=== PATIENT | female | born 1995 | race Caucasian/White ===

== ENCOUNTER 2020-07-19 19:30 | Emergency (ER) | payer MEDICAID ==
[2020-07-19] MEDS ORDERED: Sodium Chloride 0.9% 1,000 ML IV ONE (19:48)
[2020-07-19] MEDS ORDERED: Sodium Chloride 0.9% 2.5 ML Syringe FLUSH PRN (19:48)
[2020-07-19] MEDS ORDERED: Sodium Chloride 0.9% 10 ML Syringe FLUSH PRN (19:48)
[2020-07-19 20:31] LABS: BLOOD UREA NITROGEN,BUN 11 mg/dL (7.0-18.0); CARBON DIOXIDE,CO2 24.8 mmol/L (21.0-32.0); CHLORIDE,CL 102 mmol/L (98-107); GLUCOSE RANDOM 77 mg/dL (74-106); POTASSIUM,K 3.1 mmol/L (3.5-5.1); SODIUM,NA 139 mmol/L (136-145)
--- NOTE | 2020-07-19 20:50 | US ---
INDICATION: Vaginal bleeding in the 1st trimester. 11 weeks 4 days gestation by LMP TECHNIQUE: Ultrasound OB pelvis transvaginal. Real-time li-scale imaging of the pelvis was performed. COMPARISON: None FINDINGS: Sonographic imaging demonstrates a single living intrauterine gestation. The embryo demonstrates a regular cardiac rate measuring 158 beats per minute. The embryo`s crown rump length measurement of 3.2 cm corresponds to a gestational age of 10 weeks 0 days with a sonographic due date of February 14, 2021. There is a normal appearing yolk sac. There are no gross abnormalities noted within the embryo at this early state of development. The placenta has not yet developed. The gestational sac has a normal appearance and there is no evidence of a perigestational hemorrhage. The amount of fluid within the sac appears appropriate for gestational age. The ovaries are of normal size. There are no suspicious fluid collections noted in the cul-de-sac. IMPRESSION: Single viable intrauterine . No abnormalities seen. Gestational age calculated at 10 weeks 0 days with a due date of February 14, 2021. Dictated by Celine Gutiérrez MD @ Jul 19 2020 8:46PM Signed by Dr. Celine Gutiérrez @ Jul 19 2020 8:49PM
--- NOTE | 2020-07-19 21:15 | EDM.PDOC ---
ED HPI GENERAL MEDICAL PROBLEM - General Chief Complaint: MANAGER BUSINESS INTELLIGENCE Problem Stated Complaint: possible miscarriage Time Seen by Provider: 07/19/20 19:43 - History of Present Illness INITIAL COMMENTS - FREE TEXT/NARRATIVE: HISTORY AND PHYSICAL: History of present illness: This is a 25-year-old female who is 3 para 2 who presents ER today secondary to vaginal bleeding. Patient reports she is exactly 10 weeks . Patient reports that she had a routine ultrasound today to confirm dates and was told that she is 10 weeks 0 days . Patient reports that she had no complaints at the time of the ultrasound. Patient reports she went home this evening while watching TV she noticed wetness in her underwear. Patient reports went to the bathroom and noticed that it was blood. Patient reports mild abdominal cramping. Patient has any recent fevers, shakes, chills, nausea, vomiting, diarrhea, dysuria, frequency, urgency, chest pain, shortness of breath, dizziness, presyncope. Patient reports that bleeding occurred approximately half an hour prior to arrival to the ED. Patient reports that she is blood less than 1 pad. Review of systems: As per history of present illness and below otherwise all systems reviewed and negative. Past medical history: As per history of present illness and as reviewed below otherwise noncontributory. Surgical history: As per history of present illness and as reviewed below otherwise noncontributory. Social history: No reported history of drug or alcohol abuse. Family history: As per history of present illness and as reviewed below otherwise noncontributory. Physical exam: Constitutional: Patient is oriented to person, place, and time. Appears well- developed and well-nourished. No distress. HEENT: Moist mucous membranes Head: Normocephalic and atraumatic Eyes: Right eye exhibits no discharge. Left eye exhibits no discharge. No scleral icterus Neck: Normal range of motion. No tracheal deviation present. Cardiovascular: Normal rate and regular rhythm. Pulmonary: Effort normal, no respiratory distress. Abdominal: No distention Musculoskeletal: Normal range of motion Neurologic: Alert and oriented to person, place and time. Skin: [place], warm and dry. Psychiatric: Normal mood and affect. Behavior is normal. Judgment and thought content normal. Nursing note and vital signs have been reviewed Patient's ER physical exam is significant for Abd: Soft, nondistended, no rebound/guarding, no psoas or obturator signs, no tenderness at Mcberney's point, no Leiva's sign. Pt does not present with an exam that would be consistent with an acute surgical abdomen at this time, nontender to palpation. Pelvic exam: Os closed small amount of blood in vaginal vault. Diagnostics: CBC, CMP within normal limits. Patient is AB-: Per up-to-date:Some groups do not recommend prophylactic anti-D immune globulin after a complete spontaneous miscarriage before 12 weeks of gestation if the uterus is not instrumented, but do recommend prophylaxis when curettage is performed because the procedure increases the chances of fetomaternal bleeding.Spontaneous and induced before 20 weeks of gestation have been associated with a 1.5 to 2.0 percent and a 4 to 5 percent risk of alloimmunization, respectively [48]. Assessment and plan: This is a 25-year-old 3 para 2 female who presents ER today secondary to 10-week with vaginal bleeding. Patient is clinically hemodynamically stable. Patient's pelvic exam reveals a closed cervical os. Patient's ultrasound reveals a normal 10-week IUP with good heart activity. I have discussed with the patient the plan for RhoGam and have recommended that she follow-up with her OB doctor for final determination. At this time I feel that the risks and benefits would favor holding off giving RhoGam at this time. Patient is in agreement. Patient prefers to wait and speak to her OB doctor in the next 1 to 2 days for reevaluation and final decision making regarding treatment. Patient currently feels very comfortable with current plan. Patient has been advised to return to the ER if she has increased bleeding greater than 2-3 pads per hour for greater than 2 to 3 hours. Patient will return to the ER if she has any symptoms of dizziness, shortness of breath, presyncope. Patient return the ER if she has any new or concerning symptoms. Reassessment at the time of disposition demonstrates that the patient is in no acute distress. The patient has remained stable throughout the entire ED visit and is without objective evidence for acute process requiring urgent intervention or hospitalization. The patient is stable for discharge, counseling is provided as documented above, discussed symptomatic treatment and specific conditions for return. I have spoken with the patient/caregiver and discussed todays findings, in addition to providing specific details for the plan of care. Questions are answered and there is agreement with the plan. Definitive disposition and diagnosis as appropriate pending reevaluation and review of above. 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: Social & Family History - Family History Family Medical History: Noncontributory - Caffeine Use Caffeine Use: Reports: Soda - Recreational Drug Use Recreational Drug Use: No ED ROS GENERAL - Review of Systems Review Of Systems: See Below ED EXAM, GENERAL - Physical Exam Exam: See Below Course - Vital Signs Last Recorded V/S: Last Vital Signs Temp 97.7 F 07/19/20 19:44 Pulse 85 07/19/20 20:52 Resp 14 07/19/20 20:52 BP 108/69 07/19/20 20:52 Pulse Ox 99 07/19/20 20:52 - Orders/Labs/Meds Orders: Active Orders 24 hr Category Date Time Status Sodium Chloride 0.9% [Saline Flush] Med 07/19/20 19:48 Active 10 ml FLUSH ASDIRECTED PRN Sodium Chloride 0.9% [Saline Flush] Med 07/19/20 19:48 Active 2.5 ml FLUSH ASDIRECTED PRN Saline Lock Insert [OM.PC] Stat Oth 07/19/20 19:48 Ordered Medication Orders Sodium Chloride (Saline Flush) 10 ml FLUSH ASDIRECTED PRN PRN Reason: Keep Vein Open Last Admin: 07/19/20 20:09 Dose: 10 ml Documented by: NAOMY Sodium Chloride (Saline Flush) 2.5 ml FLUSH ASDIRECTED PRN PRN Reason: Keep Vein Open Last Admin: 07/19/20 20:09 Dose: 2.5 ml Documented by: NAOMY Labs: Laboratory Tests 07/19/20 07/19/20 07/19/20 Range/Units 19:37 20:05 20:05 WBC 7.43 (4.0-11.0) K/uL RBC 4.41 (4.30-5.90) M/uL Hgb 13.7 (12.0-16.0) g/dL Hct 40.0 (36.0-46.0) % MCV 90.7 (80.0-98.0) fL MCH 31.1 (27.0-32.0) pg MCHC 34.3 (31.0-37.0) g/dL RDW Std Deviation 40.7 (28.0-62.0) fl RDW Coeff of Ta 12 (11.0-15.0) % Plt Count 188 (150-400) K/uL MPV 9.80 (7.40-12.00) fL Neut % (Auto) 62.8 (48.0-80.0) % Lymph % (Auto) 28.9 (16.0-40.0) % [place] % (Auto) 7.3 (0.0-15.0) % Eos % (Auto) 0.7 (0.0-7.0) % Baso % (Auto) 0.3 (0.0-1.5) % Neut # (Auto) 4.7 (1.4-5.7) K/uL Lymph # (Auto) 2.2 (0.6-2.4) K/uL [place] # (Auto) 0.5 (0.0-0.8) K/uL Eos # (Auto) 0.1 (0.0-0.7) K/uL Baso # (Auto) 0.0 (0.0-0.1) K/uL Nucleated RBC % 0.0 /100WBC Nucleated RBCs # 0 K/uL Sodium 139 (136-145) mmol/L Potassium 3.1 L (3.5-5.1) mmol/L Chloride 102 (98-107) mmol/L Carbon Dioxide 24.8 (21.0-32.0) mmol/L BUN 11 (7.0-18.0) mg/dL Creatinine 0.6 (0.6-1.0) mg/dL Est Cr Clr Drug Dosing 113.88 mL/min Estimated GFR (MDRD) > 60.0 ml/min Glucose 77 (74-106) mg/dL Calcium 8.9 (8.5-10.1) mg/dL Total Bilirubin 0.2 (0.2-1.0) mg/dL AST 15 (15-37) IU/L ALT 20 (14-63) IU/L Alkaline Phosphatase 66 (46-116) U/L Total Protein 7.1 (6.4-8.2) g/dL Albumin 3.9 (3.4-5.0) g/dL Globulin 3.2 (2.6-4.0) g/dL Albumin/Globulin Ratio 1.2 (0.9-1.6) HCG, Quant mIU/mL Urine Color YELLOW Urine Appearance CLEAR Urine pH 6.5 (5.0-8.0) Ur Specific [place] 1.025 (1.001-1.035) Urine Protein NEGATIVE (NEGATIVE) mg/dL Urine Glucose (UA) NEGATIVE (NEGATIVE) mg/dL Urine Ketones NEGATIVE (NEGATIVE) mg/dL Urine Occult Blood MODERATE H (NEGATIVE) Urine Nitrite NEGATIVE (NEGATIVE) Urine Bilirubin NEGATIVE (NEGATIVE) Urine Urobilinogen 0.2 (<2.0) EU/dL Ur Leukocyte Esterase NEGATIVE (NEGATIVE) Urine RBC 8-10 (0-2/HPF) Urine WBC 0-1 (0-5/HPF) Ur Epithelial Cells OCCASIONAL (NONE-FEW) Urine Bacteria RARE (NEGATIVE) Blood Type 07/19/20 07/19/20 Range/Units 20:05 20:05 WBC (4.0-11.0) K/uL RBC (4.30-5.90) M/uL Hgb (12.0-16.0) g/dL Hct (36.0-46.0) % MCV (80.0-98.0) fL MCH (27.0-32.0) pg MCHC (31.0-37.0) g/dL RDW Std Deviation (28.0-62.0) fl RDW Coeff of Ta (11.0-15.0) % Plt Count (150-400) K/uL MPV (7.40-12.00) fL Neut % (Auto) (48.0-80.0) % Lymph % (Auto) (16.0-40.0) % [place] % (Auto) (0.0-15.0) % Eos % (Auto) (0.0-7.0) % Baso % (Auto) (0.0-1.5) % Neut # (Auto) (1.4-5.7) K/uL Lymph # (Auto) (0.6-2.4) K/uL [place] # (Auto) (0.0-0.8) K/uL Eos # (Auto) (0.0-0.7) K/uL Baso # (Auto) (0.0-0.1) K/uL Nucleated RBC % /100WBC Nucleated RBCs # K/uL Sodium (136-145) mmol/L Potassium (3.5-5.1) mmol/L Chloride (98-107) mmol/L Carbon Dioxide (21.0-32.0) mmol/L BUN (7.0-18.0) mg/dL Creatinine (0.6-1.0) mg/dL Est Cr Clr Drug Dosing mL/min Estimated GFR (MDRD) ml/min Glucose (74-106) mg/dL Calcium (8.5-10.1) mg/dL Total Bilirubin (0.2-1.0) mg/dL AST (15-37) IU/L ALT (14-63) IU/L Alkaline Phosphatase (46-116) U/L Total Protein (6.4-8.2) g/dL Albumin (3.4-5.0) g/dL Globulin (2.6-4.0) g/dL Albumin/Globulin Ratio (0.9-1.6) HCG, Quant 28049.0 mIU/mL Urine Color Urine Appearance Urine pH (5.0-8.0) Ur Specific [place] (1.001-1.035) Urine Protein (NEGATIVE) mg/dL Urine Glucose (UA) (NEGATIVE) mg/dL Urine Ketones (NEGATIVE) mg/dL Urine Occult Blood (NEGATIVE) Urine Nitrite (NEGATIVE) Urine Bilirubin (NEGATIVE) Urine Urobilinogen (<2.0) EU/dL Ur Leukocyte Esterase (NEGATIVE) Urine RBC (0-2/HPF) Urine WBC (0-5/HPF) Ur Epithelial Cells (NONE-FEW) Urine Bacteria (NEGATIVE) Blood Type AB NEGATIVE Meds: Medications Generic Name Dose Route Start Last Admin Trade Name Freq PRN Reason Stop Dose Admin Sodium Chloride 10 ml 07/19/20 19:48 07/19/20 20:09 Saline Flush FLUSH 10 ml ASDIRECTED PRN Administration Keep Vein Open Sodium Chloride 2.5 ml 07/19/20 19:48 07/19/20 20:09 Saline Flush FLUSH 2.5 ml ASDIRECTED PRN Administration Keep Vein Open Discontinued Medications Generic Name Dose Route Start Last Admin Trade Name Preethi PRN Reason Stop Dose Admin Sodium Chloride 1,000 mls @ 999 mls/hr 07/19/20 19:48 07/19/20 20:09 Normal Saline IV 07/19/20 20:48 999 mls/hr .Bolus ONE Administration Departure - Departure Time of Disposition: 21:14 Disposition: Home, Self-Care 01 Condition: Good Clinical Impression: Threatened - Discharge Information Instructions: Threatened Miscarriage Referrals: Alem Henson CNM [Primary Care Provider] - Additional Instructions: Please make an appointment to see your OB doctor in the next 1 to 2 days. Return to the ER if you have any increased bleeding, 2-3 pads per hour for more than 2 to 3 hours in a row. Return to the ER if you have any symptoms of dizziness, shortness of breath, feel like you are to pass out. The following information is given to patients seen in the emergency department who are being discharged to home. This information is to outline your options for follow-up care. We provide all patients seen in our emergency department with a follow-up referral. The need for follow-up, as well as the timing and circumstances, are variable depending upon the specifics of your emergency department visit. If you don't have a primary care physician on staff, we will provide you with a referral. We always advise you to contact your personal physician following an emergency department visit to inform them of the circumstance of the visit and for follow-up with them and/or the need for any referrals to a consulting specialist. The emergency department will also refer you to a specialist when appropriate. This referral assures that you have the opportunity for follow-up care with a specialist. All of these measure are taken in an effort to provide you with optimal care, which includes your follow-up. Under all circumstances we always encourage you to contact your private physician who remains a resource for coordinating your care. When calling for follow-up care, please make the office aware that this follow-up is from your recent emergency room visit. If for any reason you are refused follow-up, please contact the [facility] Emergency Department at and asked to speak to the emergency department charge nurse. Sepsis Event Note (ED) - Evaluation Sepsis Screening Result: No Definite Risk - Focused Exam Vital Signs: Vital Signs Temp Pulse Resp BP Pulse Ox 07/19/20 20:52 85 14 108/69 99 07/19/20 19:44 97.7 F 96 20 107/79 97 - My Orders Last 24 Hours: My Active Orders 07/19/20 19:48 Sodium Chloride 0.9% [Saline Flush] 10 ml FLUSH ASDIRECTED PRN Sodium Chloride 0.9% [Saline Flush] 2.5 ml FLUSH ASDIRECTED PRN Saline Lock Insert [OM.PC] Stat - Assessment/Plan Last 24 Hours: My Active Orders 07/19/20 19:48 Sodium Chloride 0.9% [Saline Flush] 10 ml FLUSH ASDIRECTED PRN Sodium Chloride 0.9% [Saline Flush] 2.5 ml FLUSH ASDIRECTED PRN Saline Lock Insert [OM.PC] Stat
== END 2020-07-19 21:27 | disposition home or self-care (01) ==
LOC: MW.ED 19:30
DX: O20.0 Threatened abortion (principal); Z3A.10 10 weeks gestation of pregnancy
CPT/HCPCS: 36415; 76801; 80053; 81001; 84702; 85025; 86900; 86901; 99284; J7030

== ENCOUNTER 2020-08-04 20:30 | Emergency (ER) | payer MEDICAID ==
[2020-08-04] MEDS ORDERED: predniSONE 20 MG Tab PO STA (20:53)
--- NOTE | 2020-08-04 20:58 | EDM.PDOC ---
ED HPI GENERAL MEDICAL PROBLEM - General Chief Complaint: Allergic Reaction Stated Complaint: SICK Time Seen by Provider: 08/04/20 20:44 - History of Present Illness INITIAL COMMENTS - FREE TEXT/NARRATIVE: HISTORY AND PHYSICAL: History of present illness: This is a 25-year-old female with no significant past medical history who is approximately 13 weeks who presents to the ER today secondary to worsening rash that she identified approximately 1 to 2 days ago. 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 Patient reports that the rash has gotten worse over the last 24 hours despite taking Benadryl. Patient denies any known allergens. Patient reports she does have a history of eczema however the swelling in her hands is not typical of her eczema and feels that this is a likely allergic reaction to something. Patient denies any recent fevers, shakes, chills, nausea, vomiting, diarrhea, dysuria, frequency, urgency, chest pain, shortness of breath. Patient reports that the rash itches and does not have any pain or discomfort to it. Patient reports that rash is diffuse and is not in a dermatomal pattern. Patient denies any outdoor events. Patient reports that she does have a cat at home but the cat is an indoor cat and never go outside either. Patient denies any new detergents, soaps, lotions or other allergens that she can identify. Patient has no known drug allergies. Patient denies any tobacco alcohol or drugs. Patient has any history of hypertension, diabetes, liver, lung, kidney problems. Review of systems: As per history of present illness and below otherwise all systems reviewed and negative. Past medical history: As per history of present illness and as reviewed below otherwise noncontributory. Surgical history: As per history of present illness and as reviewed below otherwise noncontributory. Social history: No reported history of drug or alcohol abuse. Family history: As per history of present illness and as reviewed below otherwise noncontributory. Physical exam: Constitutional: Patient is oriented to person, place, and time. Appears well- developed and well-nourished. No distress. HEENT: Moist mucous membranes Head: Normocephalic and atraumatic Eyes: Right eye exhibits no discharge. Left eye exhibits no discharge. No scleral icterus Neck: Normal range of motion. No tracheal deviation present. Cardiovascular: Normal rate and regular rhythm. Pulmonary: Effort normal, no respiratory distress. Abdominal: No distention Musculoskeletal: Normal range of motion Neurologic: Alert and oriented to person, place and time. Skin: [place], warm and dry. Psychiatric: Normal mood and affect. Behavior is normal. Judgment and thought content normal. Nursing note and vital signs have been reviewed Patient's ER physical exam is significant for diffuse hives to her torso forearms, lower extremities. No vesicular lesions or lesions consistent with shingles. Rash appears to be consistent with hives. Some lesions do appear to be in the streak-like pattern that could be consistent with poison erick or other contact allergens. Patient's oropharynx is clear without any evidence of stridor or oropharyngeal edema. Patient's lungs are clear without any wheezing rales or rhonchi. Assessment and plan: This is a 25-year-old female who presents ER today with likely rash secondary to allergic reaction. Patient will be added prednisone to her regimen and will be instructed to continue her Benadryl and to follow-up with her primary care physician. Reassessment at the time of disposition demonstrates that the patient is in no acute distress. The patient has remained stable throughout the entire ED visit and is without objective evidence for acute process requiring urgent intervention or hospitalization. The patient is stable for discharge, counseling is provided as documented above, discussed symptomatic treatment and specific conditions for return. I have spoken with the patient/caregiver and discussed todays findings, in addition to providing specific details for the plan of care. Questions are answered and there is agreement with the plan. Definitive disposition and diagnosis as appropriate pending reevaluation and review of above. 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: Endocrine/Metabolic History: Reports: Other (See Below) Other Endocrine/Metabolic History: States "hypoglycemic" Dermatologic History: Reports: Eczema - Infectious Disease History Infectious Disease History: Reports: Chicken Pox Social & Family History - Family History Family Medical History: Noncontributory - Caffeine Use Caffeine Use: Reports: Coffee - Recreational Drug Use Recreational Drug Use: No ED ROS ALLERGIC REACTION - Review of Systems Review Of Systems: See Below ED EXAM GENERAL NO PERIP PULSE - Physical Exam Exam: See Below Course - Vital Signs Last Recorded V/S: Last Vital Signs Temp 98.9 F 08/04/20 20:40 Pulse 101 H 08/04/20 20:40 Resp 18 08/04/20 20:40 BP 116/73 08/04/20 20:40 Pulse Ox 96 08/04/20 20:40 - Orders/Labs/Meds Orders: Active Orders 24 hr Category Date Time Status predniSONE Med 08/04/20 20:53 Stat 40 mg PO ONETIME STA Departure - Departure Time of Disposition: 20:57 Disposition: Home, Self-Care 01 Condition: Good Clinical Impression: Contact dermatitis - Discharge Information Instructions: Allergies, Adult, Hives Referrals: PCP,None [Primary Care Provider] - Sepsis Event Note (ED) - Evaluation Sepsis Screening Result: No Definite Risk - Focused Exam Vital Signs: Vital Signs Temp Pulse Resp BP Pulse Ox 08/04/20 20:40 98.9 F 101 H 18 116/73 96 - My Orders Last 24 Hours: My Active Orders 08/04/20 20:53 predniSONE 40 mg PO ONETIME STA - Assessment/Plan Last 24 Hours: My Active Orders 08/04/20 20:53 predniSONE 40 mg PO ONETIME STA
== END 2020-08-04 21:10 | disposition home or self-care (01) ==
LOC: MW.ED 20:30
DX: O99.711 Diseases of the skin and subcutaneous tissue complicating pregnancy, first trimester (principal); L25.9 Unspecified contact dermatitis, unspecified cause; Z3A.13 13 weeks gestation of pregnancy
CPT/HCPCS: 99282; A9270

== ENCOUNTER 2021-02-02 20:21 | Inpatient (IN) | payer MEDICAID ==
[2021-02-02] MEDS ORDERED: Lidocaine 1% 50 ML MDV INJECT PRN (22:09)
[2021-02-02] MEDS ORDERED: Sodium Chloride 0.9% 10 ML SDV IV PRN (22:09)
[2021-02-02] MEDS ORDERED: Nalbuphine 10 MG/1 ML Vial IVPUSH PRN (22:09)
[2021-02-02] MEDS ORDERED: Water For Irrigation,Sterile 1,000 ML Container IRR PRN (22:09)
[2021-02-02] MEDS ORDERED: Sodium Chloride 0.9% 2.5 ML Syringe FLUSH PRN (22:09)
[2021-02-02] MEDS ORDERED: Sodium Chloride 0.9% 10 ML Syringe FLUSH PRN (22:09)
[2021-02-02] MEDS ORDERED: Misoprostol 200 MCG Tab PO PRN (22:09)
[2021-02-02] MEDS ORDERED: Tranexamic Acid 1,000 MG in Sodium Chloride 0.9% 100 ML IV PRN (22:09)
[2021-02-02] MEDS ORDERED: Methylergonovine 0.2 MG/1 ML Amp IM PRN (22:09)
[2021-02-02] MEDS ORDERED: Butorphanol 1 MG/ML SDV IVPUSH PRN (22:09)
[2021-02-02] MEDS ORDERED: Carboprost Tromethamine 250 MCG/1 ML Amp IM PRN (22:09)
[2021-02-02] MEDS ORDERED: Oxytocin/0.9 % Sodium Chloride 30 UNIT/500 ML BAG IV SCH (22:15)
[2021-02-02] MEDS: Lactated Ringers 1,000 ML IV SCH ×2 (22:26→23:50)
[2021-02-02] MEDS ORDERED: Nalbuphine 10 MG/1 ML Vial ONE (22:31)
--- NOTE | 2021-02-02 23:09 | PCM.LDHP ---
L&D History of Present Illness - General Date of Service: 02/02/21 Admit Problem/Dx: Patient Status Order with Admit Dx/Problem 02/02/21 20:57 Patient Status [ADT] Routine 02/02/21 22:10 Patient Status [ADT] Routine Admission Diagnosis/Problem Admission Diagnosis/Problem Source of Information: Patient History Limitations: Reports: No Limitations - History of Present Illness Introduction:: 25yo @ 38w4d here with Ctx for the past 7hrs. Denies LOF or VB. Reports good FM Mother blood type is AB neg, Rhogam administered at 28w GA care unremarkable otherwise: Abs screen neg, RI, RPR NR, HBsAg neg, HIV neg, GC/CHlam neg, GBS neg Nurse perform Labor check during which time patient went from 3cm to 4cm dilation Pain Score: 8 - Related Data Allergies/Adverse Reactions: Allergies Allergy/AdvReac Type Severity Reaction Status Date / Time No Known Allergies Allergy Verified 11/23/20 19:25 Home Medications: Home Meds Pnv No.95/Ferrous Fum/Folic AC [ Caplet] 1 tab PO DAILY 07/19/20 [Hist ory] Past Medical History HEENT History: Reports: None Cardiovascular History: Reports: None Respiratory History: Reports: None Gastrointestinal History: Reports: None Genitourinary History: Reports: None 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: Musculoskeletal History: Reports: None Neurological History: Reports: None Psychiatric History: Reports: None Endocrine/Metabolic History: Reports: Other (See Below) Other Endocrine/Metabolic History: States "hypoglycemic" Hematologic History: Reports: None, Other (See Below) (Maternal Rh negative status) Immunologic History: Reports: None Dermatologic History: Reports: Eczema - Infectious Disease History Infectious Disease History: Reports: Chicken Pox Social & Family History - Family History Family Medical History: No Pertinent Family History - Caffeine Use Caffeine Use: Reports: Coffee H&P Review of Systems - Review of Systems: Review Of Systems: See Below General: Reports: No Symptoms HEENT: Reports: No Symptoms Pulmonary: Reports: No Symptoms Cardiovascular: Reports: No Symptoms Gastrointestinal: Reports: No Symptoms Genitourinary: Reports: No Symptoms Musculoskeletal: Reports: No Symptoms Skin: Reports: No Symptoms Psychiatric: Reports: No Symptoms Neurological: Reports: No Symptoms Hematologic/Lymphatic: Reports: No Symptoms Immunologic: Reports: No Symptoms L&D Exam - Exam Exam: See Below - Vital Signs Weight: 68.492 kg - OB Specific Contraction Intensity: Moderate Movement: Active Heart Tones: Present Presentation: Vertex Estimated Weight: 7 - Carrillo Score Carrillo Score Cervix Position: Midposition Carrillo Score Consistency: Soft Carrillo Score Effacement: >80% Carrillo Score Dilation: 3-4 cm Carrillo Score 's Station: -1 ,0 Carrillo Score Total: 10 - Exam General: Alert, Oriented Neck: Supple Lungs: Normal Respiratory Effort Cardiovascular: Regular Rate GI/Abdominal Exam: Soft Back Exam: Normal Inspection Extremities: No Pedal Edema Psychiatric: Alert, Normal Affect, Normal Mood - Patient Data Lab Results Last 24 hrs: Laboratory Results - last 24 hr 02/02/21 Range/Units 22:22 WBC 10.98 (4.0-11.0) K/uL RBC 3.96 L (4.30-5.90) M/uL Hgb 10.6 L (12.0-16.0) g/dL Hct 32.5 L (36.0-46.0) % MCV 82.1 (80.0-98.0) fL MCH 26.8 L (27.0-32.0) pg MCHC 32.6 (31.0-37.0) g/dL RDW Std Deviation 40.2 (28.0-62.0) fl RDW Coeff of Ta 13 (11.0-15.0) % Plt Count 200 (150-400) K/uL MPV 10.20 (7.40-12.00) fL Nucleated RBC % 0.0 /100WBC Nucleated RBCs # 0 K/uL Result Diagrams: 02/02/21 22:22 - Problem List (1) Term SNOMED Code(s): 63820901 ICD Code: Z34.90 - ENCNTR FOR SUPRVSN OF NORMAL , UNSP, UNSP TRIMESTER Status: Acute Current Visit: Yes (2) Active labor at term SNOMED Code(s): 48778824 ICD Code: [id number] - Status: Acute Current Visit: Yes Problem List Initiated/Reviewed/Updated: Yes Orders Last 24hrs: Active Orders 24 hr Category Date Time Status Patient Status [ADT] Routine ADT 02/02/21 22:10 Active Heart Tones [RC] CONTINUOUS Care 02/02/21 22:10 Active Non Stress Test [RC] PER UNIT ROUTINE Care 02/02/21 20:57 Active Non Stress Test [RC] PER UNIT ROUTINE Care 02/02/21 22:10 Active May Shower [RC] ASDIRECTED Care 02/02/21 22:10 Active Notify Provider [RC] PRN Care 02/02/21 22:10 Active Up ad Mary [RC] ASDIRECTED Care 02/02/21 20:57 Active Up ad Mary [RC] ASDIRECTED Care 02/02/21 22:10 Active Vaginal Exam [RC] Click to Edit Care 02/02/21 20:57 Active Vaginal Exam [RC] PRN Care 02/02/21 22:10 Active Vital Signs [RC] PER UNIT ROUTINE Care 02/02/21 20:57 Active Vital Signs [RC] PER UNIT ROUTINE Care 02/02/21 22:10 Active CORONAVIRUS COVID-19 JERAD [MOLEC] Routine Lab 02/02/21 22:26 Received RPR (SYPHILIS SERO) W/ RFLX [REF] Routine Lab 02/02/21 22:22 Received TYPE AND SCREEN [BBK] Routine Lab 02/02/21 22:22 Received Butorphanol [Stadol] Med 02/02/21 22:09 Active 1 mg IVPUSH Q1H PRN Carboprost Tromethamine [Hemabate DS] Med 02/02/21 22:09 Active 250 mcg IM ASDIRECTED PRN Lactated Ringers [Ringers, Lactated] 1,000 ml Med 02/02/21 22:15 Active IV ASDIRECTED Lidocaine 1% [Xylocaine 1%] Med 02/02/21 22:09 Active 50 ml INJECT ONETIME PRN Methylergonovine [Methergine] Med 02/02/21 22:09 Active 0.2 mg IM ASDIRECTED PRN Nalbuphine [Nubain] Med 02/02/21 22:09 Active 10 mg IVPUSH Q1H PRN Oxytocin/0.9 % Sodium Chloride [Oxytocin 30 Unit/500 ML Med 02/02/21 22:15 Active -NS] 30 unit in 500 ml IV TITRATE Sodium Chloride 0.9% [Normal Saline] Med 02/02/21 22:09 Active 10 ml IV ASDIRECTED PRN Sodium Chloride 0.9% [Saline Flush] Med 02/02/21 22:09 Active 10 ml FLUSH ASDIRECTED PRN Sodium Chloride 0.9% [Saline Flush] Med 02/02/21 22:09 Active 2.5 ml FLUSH ASDIRECTED PRN Tranexamic Acid [Cyklokapron] 1,000 mg Med 02/02/21 22:09 Active Sodium Chloride 0.9% [Normal Saline] 100 ml IV ONETIME Water For Irrigation,Sterile [Sterile Water for Med 02/02/21 22:09 Active Irrigation] 1,000 ml IRR ASDIRECTED PRN miSOPROStoL [Cytotec] Med 02/02/21 22:09 Active 200 mcg PO ONETIME PRN Scalp Electrode [WOMSER] Per Unit Routine Oth 02/02/21 22:10 Ordered Peripheral IV Insertion Adult [OM.PC] Routine Oth 02/02/21 22:10 Ordered Resuscitation Status Routine Resus Stat 02/02/21 20:57 Ordered Medication Orders Butorphanol Tartrate (Butorphanol 1 Mg/Ml Sdv) 1 mg IVPUSH Q1H PRN PRN Reason: Pain Carboprost Tromethamine (Carboprost Tromethamine 250 Mcg/1 Ml Amp) 250 mcg IM ASDIRECTED PRN PRN Reason: Post Hemorrhage Lactated Ringer's (Ringers, Lactated) 1,000 mls @ 150 mls/hr IV ASDIRECTED JUN Oxytocin/Sodium Chloride (Oxytocin 30 Unit/500 Ml-Ns) 30 unit in 500 mls @ 999 mls/hr IV TITRATE JUN Tranexamic Acid 1,000 mg/ (Sodium Chloride) 110 mls @ 660 mls/hr IV ONETIME PRN PRN Reason: Bleeding Lidocaine HCl (Lidocaine 1% 50 Ml Mdv) 50 ml INJECT ONETIME PRN PRN Reason: Laceration repair Methylergonovine Maleate (Methylergonovine 0.2 Mg/1 Ml Amp) 0.2 mg IM ASDIRECTED PRN PRN Reason: Post Hemorrhage Misoprostol (Misoprostol 200 Mcg Tab) 200 mcg PO ONETIME PRN PRN Reason: Post Hemorrhage Nalbuphine HCl (Nalbuphine 10 Mg/1 Ml Vial) 10 mg IVPUSH Q1H PRN PRN Reason: Pain (severe 7-10) Last Admin: 02/02/21 22:33 Dose: 10 mg Documented by: CABAKAR Sodium Chloride (Sodium Chloride 0.9% 10 Ml Syringe) 10 ml FLUSH ASDIRECTED PRN PRN Reason: Keep Vein Open Sodium Chloride (Sodium Chloride 0.9% 2.5 Ml Syringe) 2.5 ml FLUSH ASDIRECTED PRN PRN Reason: Keep Vein Open Sodium Chloride (Sodium Chloride 0.9% 10 Ml Sdv) 10 ml IV ASDIRECTED PRN PRN Reason: IV Use Sterile Water (Water For Irrigation,Sterile 1,000 Ml Container) 1,000 ml IRR ASDIRECTED PRN PRN Reason: delivery Assessment/Plan Comment:: 25yo @ 38w4d here in labor. Cat1 strip. Ctx Q2-4mns Carrillo score 10 Expectant management. Will augment with Pitocin PRN. Benefits, risk and use discussed with patient and partner. Both agreeable with the plan. Epidural PRN
[2021-02-02] MEDS ORDERED: Ropivacaine 0.2% PF 2 MG/ML 20 ML SDV ONE (23:25)
[2021-02-02] MEDS ORDERED: fentaNYL 100 MCG/2 ML SDV ONE (23:25)
[2021-02-02] MEDS ORDERED: Ropivacaine HCl/PF 100 ML ONE (23:25)
--- NOTE | 2021-02-03 00:01 | PCM.PREANE ---
Preanesthetic Assessment - Procedure Proposed Procedure: labor epidural - Anesthesia/Transfusion/Family Hx Anesthesia History: No Prior Anesthesia (previous epidurals) Family History of Anesthesia Reaction: No Intubation History: Unknown - Review of Systems General: No Symptoms Pulmonary: No Symptoms Cardiovascular: No Symptoms Gastrointestinal: No Symptoms Neurological: No Symptoms Other: Reports: None - Physical Assessment Height: 5 ft 5 in Weight: 68.492 kg ASA Class: 2 Mental Status: Alert & Oriented x3 Airway Class: Mallampati = 1 Dentition: Reports: Normal Dentition, Broken Tooth/Teeth (1 chipped tooth molar) Thyro-Mental Finger Breadths: 3 Mouth Opening Finger Breadths: 3 ROM/Head Extension: Full Lungs: Clear to Auscultation, Normal Respiratory Effort - Lab Values: Laboratory Last Values WBC 10.98 K/uL (4.0-11.0) 02/02/21 22: RBC 3.96 M/uL (4.30-5.90) L 02/02/21 22: Hgb 10.6 g/dL (12.0-16.0) L 02/02/21 22: Hct 32.5 % (36.0-46.0) L 02/02/21 22:22 MCV 82.1 fL (80.0-98.0) 02/02/21 22: MCH 26.8 pg (27.0-32.0) L 02/02/21 22: MCHC 32.6 g/dL (31.0-37.0) 02/02/21 22: RDW Std Deviation 40.2 fl (28.0-62.0) 02/02/21 22:22 RDW Coeff of Ta 13 % (11.0-15.0) 02/02/21 22:22 Plt Count 200 K/uL (150-400) 02/02/21 22:22 MPV 10.20 fL (7.40-12.00) 02/02/21 22: Nucleated RBC % 0.0 /100WBC 02/02/21 22:22 Nucleated RBCs # 0 K/uL 02/02/21 22:22 SARS-CoV-2 RNA (JERAD) NEGATIVE (NEGATIVE) 02/02/21 22:26 Blood Type AB NEGATIVE 02/02/21 22:22 Antibody Screen NEGATIVE 02/02/21 22:22 - Allergies Allergies/Adverse Reactions: Allergies Allergy/AdvReac Type Severity Reaction Status Date / Time No Known Allergies Allergy Verified 11/23/20 19:25 - Blood Blood Available: Yes Product(s) Available: PRBC - Anesthesia Plan Pre-Op Medication Ordered: None - Acknowledgements Anesthesia Type Planned: Epidural Pt an Appropriate Candidate for the Planned Anesthesia: Yes Alternatives and Risks of Anesthesia Discussed w Pt/Guardian: Yes Pt/Guardian Understands and Agrees with Anesthesia Plan: Yes PreAnesthesia Questionnaire HEENT History: Reports: None Cardiovascular History: Reports: None Respiratory History: Reports: None Gastrointestinal History: Reports: None Genitourinary History: Reports: None [employer] History: Reports: Musculoskeletal History: Reports: None Neurological History: Reports: None Psychiatric History: Reports: None Endocrine/Metabolic History: Reports: Other (See Below) Other Endocrine/Metabolic History: States "hypoglycemic" Hematologic History: Reports: None, Other (See Below) (Maternal Rh negative status) Immunologic History: Reports: None Dermatologic History: Reports: Eczema - Infectious Disease History Infectious Disease History: Reports: Chicken Pox - HOME MEDS Home Medications: Home Meds Pnv No.95/Ferrous Fum/Folic AC [ Caplet] 1 tab PO DAILY 07/19/20 [History] - CURRENT (IN HOUSE) MEDS Current Meds: Current Medications Butorphanol Tartrate (Butorphanol 1 Mg/Ml Sdv) 1 mg IVPUSH Q1H PRN PRN Reason: Pain Carboprost Tromethamine (Carboprost Tromethamine 250 Mcg/1 Ml Amp) 250 mcg IM ASDIRECTED PRN PRN Reason: Post Hemorrhage Lactated Ringer's (Ringers, Lactated) 1,000 mls @ 150 mls/hr IV ASDIRECTED [facility] Last Admin: 02/02/21 23:50 Dose: 999 mls/hr Documented by: Oxytocin/Sodium Chloride (Oxytocin 30 Unit/500 Ml-Ns) 30 unit in 500 mls @ 999 mls/hr IV TITRATE JUN Tranexamic Acid 1,000 mg/ (Sodium Chloride) 110 mls @ 660 mls/hr IV ONETIME PRN PRN Reason: Bleeding Lidocaine HCl (Lidocaine 1% 50 Ml Mdv) 50 ml INJECT ONETIME PRN PRN Reason: Laceration repair Methylergonovine Maleate (Methylergonovine 0.2 Mg/1 Ml Amp) 0.2 mg IM ASDIRECTED PRN PRN Reason: Post Hemorrhage Misoprostol (Misoprostol 200 Mcg Tab) 200 mcg PO ONETIME PRN PRN Reason: Post Hemorrhage Nalbuphine HCl (Nalbuphine 10 Mg/1 Ml Vial) 10 mg IVPUSH Q1H PRN PRN Reason: Pain (severe 7-10) Last Admin: 02/02/21 22:33 Dose: 10 mg Documented by: Sodium Chloride (Sodium Chloride 0.9% 10 Ml Syringe) 10 ml FLUSH ASDIRECTED PRN PRN Reason: Keep Vein Open Sodium Chloride (Sodium Chloride 0.9% 2.5 Ml Syringe) 2.5 ml FLUSH ASDIRECTED PRN PRN Reason: Keep Vein Open Sodium Chloride (Sodium Chloride 0.9% 10 Ml Sdv) 10 ml IV ASDIRECTED PRN PRN Reason: IV Use Sterile Water (Water For Irrigation,Sterile 1,000 Ml Container) 1,000 ml IRR ASDIRECTED PRN PRN Reason: delivery Discontinued Medications Fentanyl (Fentanyl 100 Mcg/2 Ml Sdv) Confirm Administered Dose 100 mcg .ROUTE .STK-MED ONE Stop: 02/02/21 23:26 Ropivacaine (Naropin 0.2%) Confirm Administered Dose 100 mls @ as directed .ROUTE .STK-MED ONE Stop: 02/02/21 23:26 Nalbuphine HCl (Nalbuphine 10 Mg/1 Ml Vial) Confirm Administered Dose 10 mg .ROUTE .STK-MED ONE Stop: 02/02/21 22:32 Ropivacaine (Ropivacaine 0.2% Pf 2 Mg/Ml 20 Ml Sdv) Confirm Administered Dose 20 ml .ROUTE .STK-MED ONE Stop: 02/02/21 23:26
[2021-02-03] MEDS ORDERED: Lanolin 100% Cream 7 GM Tube TOP PRN (04:17)
[2021-02-03] MEDS ORDERED: Ibuprofen 400 MG Tab PO PRN (04:17)
[2021-02-03] MEDS ORDERED: Acetaminophen 500 MG Tab PO PRN (04:17)
[2021-02-03] MEDS ORDERED: Benzocaine/Menthol 20%-0.5% Spray 78 GM Cannister TOP PRN (04:17)
[2021-02-03] MEDS ORDERED: oxyCODONE 5 MG Tab PO PRN (04:17)
[2021-02-03] MEDS ORDERED: Bisacodyl 10 MG Supp RECTAL PRN (04:17)
[2021-02-03] MEDS ORDERED: Witch Hazel Medicated Pads 40/Jar TOP PRN (04:17)
[2021-02-03] MEDS: Ibuprofen 800 MG Tab PO PRN ×3 (04:34→21:40)
[2021-02-03] MEDS: Acetaminophen 500 MG Tab PO PRN ×2 (04:35→16:41)
[2021-02-03] MEDS: Docusate Sodium 100 MG Cap PO PRN ×2 (04:37→21:12)
--- NOTE | 2021-02-03 10:53 | PCM48HPAN ---
Post Anesthesia Note - EVALUATION WITHIN 48HRS OF ANESTHETIC Vital Signs in Normal Range: Yes Patient Participated in Evaluation: Yes Respiratory Function Stable: Yes Airway Patent: Yes Cardiovascular Function Stable: Yes Hydration Status Stable: Yes Pain Control Satisfactory: Yes Nausea and Vomiting Control Satisfactory: Yes Mental Status Recovered: Yes Vital Signs: Last Vital Signs Temp 36.7 C 02/03/21 08:40 Pulse 73 02/03/21 08:40 Resp 16 02/03/21 08:40 BP 102/63 02/03/21 08:40 Pulse Ox 95 02/03/21 08:40 - COMMENTS/OBSERVATIONS Free Text/Narrative:: a little numb R) thigh
--- NOTE | 2021-02-03 14:47 | PCM.DEL ---
L & D Note - General Info Date of Service: 02/03/21 Mother's Due Date: 02/12/21 - Delivery Note Labor: Spontaneous Delivery Outcome: Livebirth Infant Delivery Method: Spontaneous Vaginal Delivery-Single Presentation: Vertex Nuchal Cord: None Amniotic Fluid Description: Clear Episiotomy Type: None Laceration: None Placenta: Intact, Spontaneous Cord: 3 Vessels Estimated Blood Loss: 250 Resuscitation Needed: No [place]: Suctioned Score 1 min: 8 Score 5 min: 8 Delivery Comments (Free Text/Narrative):: 25yo G3 now P3003 S/P uncomplicated at @ 38w5d. care complicated by Rh negative status, patient received rhogam at 28w GA Normal spontaneous vaginal delivery, of live female , over an intact perineum with epidural anesthesia. No meconium or nuchal cord present. Spontaneous delivery of placenta with 3-vessel cord. No lacerations noted. All sponges and instrument counts correct Delivery details: Female infant Weight: 7'2" : 8/8 EBL 250cc - General Info Date of Service: 02/03/21 Admission Dx/Problem (Free Text): Patient Status Order with Admit Dx/Problem 02/02/21 20:57 Patient Status [ADT] Routine 02/02/21 22:10 Patient Status [ADT] Routine Admission Diagnosis/Problem Admission Diagnosis/Problem Subjective Update: Uncomplicated . Mom and baby are doing well Functional Status: Reports: Pain Controlled - Review of Systems General: Reports: No Symptoms HEENT: Reports: No Symptoms Pulmonary: Reports: No Symptoms Cardiovascular: Reports: No Symptoms Gastrointestinal: Reports: No Symptoms Genitourinary: Reports: No Symptoms Musculoskeletal: Reports: No Symptoms Skin: Reports: No Symptoms Neurological: Reports: No Symptoms Psychiatric: Reports: No Symptoms - Patient Data Vitals - Most Recent: Last Vital Signs Temp 98.1 F 02/03/21 08:40 Pulse 73 02/03/21 08:40 Resp 16 02/03/21 08:40 BP 102/63 02/03/21 08:40 Pulse Ox 95 02/03/21 08:40 Weight - Most Recent: 68.492 kg I&O - Last 24 Hours: Intake & Output 02/02/21 02/03/21 02/03/21 22:59 06:59 14:59 Output Total 525 Balance -525 Lab Results Last 24 Hours: Laboratory Results - last 24 hr 02/02/21 02/02/21 02/02/21 Range/Units 22:22 22:22 22:26 WBC 10.98 (4.0-11.0) K/uL RBC 3.96 L (4.30-5.90) M/uL Hgb 10.6 L (12.0-16.0) g/dL Hct 32.5 L (36.0-46.0) % MCV 82.1 (80.0-98.0) fL MCH 26.8 L (27.0-32.0) pg MCHC 32.6 (31.0-37.0) g/dL RDW Std Deviation 40.2 (28.0-62.0) fl RDW Coeff of Ta 13 (11.0-15.0) % Plt Count 200 (150-400) K/uL MPV 10.20 (7.40-12.00) fL Nucleated RBC % 0.0 /100WBC Nucleated RBCs # 0 K/uL SARS-CoV-2 RNA (JERAD) NEGATIVE (NEGATIVE) Blood Type AB NEGATIVE Antibody Screen NEGATIVE Screen (NEGATIVE) RhIG Candidate? Rhogam Indicated 02/03/21 Range/Units 03:39 WBC (4.0-11.0) K/uL RBC (4.30-5.90) M/uL Hgb (12.0-16.0) g/dL Hct (36.0-46.0) % MCV (80.0-98.0) fL MCH (27.0-32.0) pg MCHC (31.0-37.0) g/dL RDW Std Deviation (28.0-62.0) fl RDW Coeff of Ta (11.0-15.0) % Plt Count (150-400) K/uL MPV (7.40-12.00) fL Nucleated RBC % /100WBC Nucleated RBCs # K/uL SARS-CoV-2 RNA (JERAD) (NEGATIVE) Blood Type Antibody Screen Screen NEGATIVE (NEGATIVE) RhIG Candidate? YES Rhogam Indicated YES, BABY RH POS H Med Orders - Current: Current Medications Acetaminophen (Acetaminophen 500 Mg Tab) 500 mg PO Q4H PRN PRN Reason: Pain Acetaminophen (Acetaminophen 500 Mg Tab) 1,000 mg PO Q4H PRN PRN Reason: Pain Last Admin: 05/01/21 04:35 Dose: 1,000 mg Documented by: Benzocaine/Menthol (Benzocaine/Menthol 20%-0.5% [place] 78 Gm Cannister) 78 gm TOP ASDIRECTED PRN PRN Reason: Perineal Comfort Measure Last Admin: 02/03/21 04:38 Dose: 1 canister Documented by: Bisacodyl (Bisacodyl 10 Mg Supp) 10 mg RECTAL ONETIME PRN PRN Reason: Constipation Butorphanol Tartrate (Butorphanol 1 Mg/Ml Sdv) 1 mg IVPUSH Q1H PRN PRN Reason: Pain Carboprost Tromethamine (Carboprost Tromethamine 250 Mcg/1 Ml Amp) 250 mcg IM ASDIRECTED PRN PRN Reason: Post Hemorrhage Docusate Sodium (Docusate Sodium 100 Mg Cap) 100 mg PO BID PRN PRN Reason: Constipation Last Admin: 02/03/21 04:37 Dose: 100 mg Documented by: Emollient Ointment (Lanolin 100% Cream 7 Gm Tube) 0 gm TOP ASDIRECTED PRN PRN Reason: Sore Nipples Last Admin: 02/03/21 04:37 Dose: 7 gm Documented by: Lactated Ringer's (Ringers, Lactated) 1,000 mls @ 150 mls/hr IV ASDIRECTED [facility] Last Infusion: 02/03/21 02:39 Dose: Infused Documented by: Oxytocin/Sodium Chloride (Oxytocin 30 Unit/500 Ml-Ns) 30 unit in 500 mls @ 999 mls/hr IV TITRATE [facility] Last Admin: 02/03/21 02:39 Dose: 999 mls/hr Documented by: Tranexamic Acid 1,000 mg/ (Sodium Chloride) 110 mls @ 660 mls/hr IV ONETIME PRN PRN Reason: Bleeding Ibuprofen (Ibuprofen 400 Mg Tab) 400 mg PO Q4H PRN PRN Reason: Pain Ibuprofen (Ibuprofen 800 Mg Tab) 800 mg PO Q6H PRN PRN Reason: Pain Last Admin: 02/03/21 11:38 Dose: 800 mg Documented by: Lidocaine HCl (Lidocaine 1% 50 Ml Mdv) 50 ml INJECT ONETIME PRN PRN Reason: Laceration repair Methylergonovine Maleate (Methylergonovine 0.2 Mg/1 Ml Amp) 0.2 mg IM ASDIRECTED PRN PRN Reason: Post Hemorrhage Misoprostol (Misoprostol 200 Mcg Tab) 200 mcg PO ONETIME PRN PRN Reason: Post Hemorrhage Nalbuphine HCl (Nalbuphine 10 Mg/1 Ml Vial) 10 mg IVPUSH Q1H PRN PRN Reason: Pain (severe 7-10) Last Admin: 02/02/21 22:33 Dose: 10 mg Documented by: Oxycodone HCl (Oxycodone 5 Mg Tab) 5 mg PO Q2H PRN PRN Reason: Pain Sodium Chloride (Sodium Chloride 0.9% 10 Ml Syringe) 10 ml FLUSH ASDIRECTED PRN PRN Reason: Keep Vein Open Sodium Chloride (Sodium Chloride 0.9% 2.5 Ml Syringe) 2.5 ml FLUSH ASDIRECTED PRN PRN Reason: Keep Vein Open Sodium Chloride (Sodium Chloride 0.9% 10 Ml Sdv) 10 ml IV ASDIRECTED PRN PRN Reason: IV Use Sterile Water (Water For Irrigation,Sterile 1,000 Ml Container) 1,000 ml IRR ASDIRECTED PRN PRN Reason: delivery Witch Florecita (Witch Florecita Medicated Pads 40/Jar) 1 pad TOP ASDIRECTED PRN PRN Reason: comfort care Last Admin: 02/03/21 04:38 Dose: 1 tub Documented by: Discontinued Medications Fentanyl (Fentanyl 100 Mcg/2 Ml Sdv) Confirm Administered Dose 100 mcg .ROUTE .STK-MED ONE Stop: 02/02/21 23:26 Last Admin: 02/03/21 11:34 Dose: Not Given Documented by: Ropivacaine (Naropin 0.2%) Confirm Administered Dose 100 mls @ as directed .ROUTE .STK-MED ONE Stop: 02/02/21 23:26 Last Admin: 02/03/21 11:34 Dose: Not Given Documented by: Nalbuphine HCl (Nalbuphine 10 Mg/1 Ml Vial) Confirm Administered Dose 10 mg .ROUTE .STK-MED ONE Stop: 02/02/21 22:32 Last Admin: 02/03/21 11:34 Dose: Not Given Documented by: Ropivacaine (Ropivacaine 0.2% Pf 2 Mg/Ml 20 Ml Sdv) Confirm Administered Dose 20 ml .ROUTE .STK-MED ONE Stop: 02/02/21 23:26 Last Admin: 02/03/21 11:34 Dose: Not Given Documented by: - Exam General: Alert, Oriented Lungs: Normal Respiratory Effort Cardiovascular: Regular Rate GI/Abdominal Exam: Soft, Non-Tender (Female) Exam: Normal External Exam Extremities: Normal Inspection Psy/Mental Status: Alert, Normal Affect, Normal Mood - Problem List & Annotations (1) Term SNOMED Code(s): 82419462 Code(s): Z34.90 - ENCNTR FOR SUPRVSN OF NORMAL , UNSP, UNSP TRIMESTER Status: Acute Priority: Medium Current Visit: Yes (2) Active labor at term SNOMED Code(s): 21642322 Code(s): SWZ2722 - Status: Acute Priority: Medium Current Visit: Yes (3) Term delivered SNOMED Code(s): 14038305, 796455081 Code(s): O80 - ENCOUNTER FOR FULL-TERM UNCOMPLICATED DELIVERY Status: Acute Priority: High Current Visit: Yes - Problem List Review Problem List Initiated/Reviewed/Updated: Yes - My Orders Last 24 Hours: My Active Orders 02/02/21 20:57 Resuscitation Status Routine 02/02/21 22:09 Butorphanol [Stadol] 1 mg IVPUSH Q1H PRN Carboprost Tromethamine [Hemabate DS] 250 mcg IM ASDIRECTED PRN Lidocaine 1% [Xylocaine 1%] 50 ml INJECT ONETIME PRN Methylergonovine [Methergine] 0.2 mg IM ASDIRECTED PRN Nalbuphine [Nubain] 10 mg IVPUSH Q1H PRN Sodium Chloride 0.9% [Normal Saline] 10 ml IV ASDIRECTED PRN Sodium Chloride 0.9% [Saline Flush] 10 ml FLUSH ASDIRECTED PRN Sodium Chloride 0.9% [Saline Flush] 2.5 ml FLUSH ASDIRECTED PRN Tranexamic Acid [Cyklokapron] 1,000 mg Sodium Chloride 0.9% [Normal Saline] 100 ml IV ONETIME Water For Irrigation,Sterile [Sterile Water for Irrigation] 1,000 ml IRR ASDIRECTED PRN miSOPROStoL [Cytotec] 200 mcg PO ONETIME PRN 02/02/21 22:10 May Shower [RC] ASDIRECTED Scalp Electrode [WOMSER] Per Unit Routine Peripheral IV Insertion Adult [OM.PC] Routine 02/02/21 22:15 Lactated Ringers [Ringers, Lactated] 1,000 ml IV ASDIRECTED Oxytocin/0.9 % Sodium Chloride [Oxytocin 30 Unit/500 ML-NS] 30 unit in 500 ml IV TITRATE 02/02/21 22:22 RPR (SYPHILIS SERO) W/ RFLX [REF] Routine 02/03/21 03:39 SCREEN [BBK] Routine RH IMMUNE GLOBULIN [BBK] Routine RHIG WORKUP, [BBK] Routine 02/03/21 04:17 Patient Status [ADT] Routine Up ad Mary [RC] ASDIRECTED Vital Signs [RC] PER UNIT ROUTINE Acetaminophen [Tylenol Extra Strength] 1,000 mg PO Q4H PRN Acetaminophen [Tylenol Extra Strength] 500 mg PO Q4H PRN Benzocaine/Menthol [Dermoplast Pain Relief 20%-0.5% [place]] 78 gm TOP ASDIRECTED PRN Docusate Sodium [Colace] 100 mg PO BID PRN Ibuprofen [Motrin] 400 mg PO Q4H PRN Ibuprofen [Motrin] 800 mg PO Q6H PRN Lanolin [Lansinoh HPA] See Dose Instructions TOP ASDIRECTED PRN bisacodyL [Dulcolax] 10 mg RECTAL ONETIME PRN oxyCODONE 5 mg PO Q2H PRN witch Florecita [Tucks] 1 pad TOP ASDIRECTED PRN Assess Lochia [WOMSER] Per Unit Routine Assess Uterine Involution [WOMSER] Per Unit Routine Peripheral IV Discontinue [OM.PC] Routine 02/03/21 Lunch Regular Diet [DIET] 02/04/21 05:11 HEMOGLOBIN/HEMATOCRIT,HH [HEME] Timed - Plan Plan:: 25yo G3 now P3003 S/P uncomplicated at @ 38w5d. Mother and baby are doing well. P: Routine care Rhogam eval to determine if Mom needs rhogam shot. TDAP per mother preference
[2021-02-03] MEDS ORDERED: Diphtheria,Pertussis(Acell),Tetanus Vaccine 0.5 ML Syringe IM ONE (14:59)
[2021-02-04] MEDS: Acetaminophen 500 MG Tab PO PRN (04:35)
[2021-02-04] MEDS: Ibuprofen 800 MG Tab PO PRN (09:46)
--- NOTE | 2021-02-04 13:48 | PCM.DCSUM1 ---
Discharge Summary - Hospital Course Free Text/Narrative:: 25yo G3 now [id number] S/P uncomplicated at @ 38w5d. Patient came in labor, and delivered without augmentation after 6-7hrs. Had received the epidural. care complicated by Rh negative status, patient received rhogam at 28w GA and after delivery Delivery details: Female Weight: 7'2" : 8/8 EBL 250cc course has been unremarkable, Mom and baby are doing well. Diagnosis: Stroke: No - Discharge Data Discharge Date: 02/04/21 Discharge Disposition: Home, Self-Care 01 Condition: Good - Referral to Home Health Primary Care Physician: PCP None - Discharge Diagnosis/Problem(s) (1) Term SNOMED Code(s): 25637366 ICD Code: Z34.90 - ENCNTR FOR SUPRVSN OF NORMAL , UNSP, UNSP TRIMESTER Status: Acute Priority: Medium Current Visit: Yes (2) Active labor at term SNOMED Code(s): 08886869 ICD Code: [id number] - Status: Acute Priority: Medium Current Visit: Yes (3) Term delivered SNOMED Code(s): 92586143, [id number] ICD Code: O80 - ENCOUNTER FOR FULL-TERM UNCOMPLICATED DELIVERY Status: Acute Priority: High Current Visit: Yes - Patient Instructions Diet: Regular Diet as Tolerated - Discharge Plan *PRESCRIPTION DRUG MONITORING PROGRAM REVIEWED*: Not Applicable *COPY OF PRESCRIPTION DRUG MONITORING REPORT IN PATIENT RAHUL: Not Applicable Home Medications: Home Meds Pnv No.95/Ferrous Fum/Folic AC [ Caplet] 1 tab PO DAILY 07/19/20 [History] Patient Handouts: Baby Blues, Care After Vaginal Delivery - Discharge Summary/Plan Comment DC Time >30 min.: Yes Discharge Summary/Plan Comment: Discharge per unit routine - General Info Date of Service: 02/04/21 Admission Dx/Problem (Free Text: Patient Status Order with Admit Dx/Problem 02/02/21 20:57 Patient Status [ADT] Routine 02/02/21 22:10 Patient Status [ADT] Routine Admission Diagnosis/Problem Admission Diagnosis/Problem Subjective Update: Uncomplicated . Mom and baby are doing well Functional Status: Reports: Pain Controlled - Review of Systems General: Reports: No Symptoms HEENT: Reports: No Symptoms Pulmonary: Reports: No Symptoms Cardiovascular: Reports: No Symptoms Gastrointestinal: Reports: No Symptoms Genitourinary: Reports: No Symptoms Musculoskeletal: Reports: No Symptoms Skin: Reports: No Symptoms Neurological: Reports: No Symptoms Psychiatric: Reports: No Symptoms - Patient Data Vitals - Most Recent: Last Vital Signs Temp 97.8 F 02/04/21 08:05 Pulse 87 02/04/21 08:05 Resp 14 02/04/21 08:05 BP 106/70 02/04/21 08:05 Pulse Ox 97 02/04/21 08:05 Weight - Most Recent: 68.492 kg I&O - Last 24 hours: Intake & Output 02/03/21 02/04/21 02/04/21 22:59 06:59 14:59 Intake Total 2 Balance 2 Lab Results - Last 24 hrs: Laboratory Results - last 24 hr 02/03/21 02/04/21 Range/Units 03:39 06:50 Hgb 9.7 L (12.0-16.0) g/dL Hct 30.4 L (36.0-46.0) % Screen NEGATIVE (NEGATIVE) RhIG Candidate? YES Rhogam Indicated YES, BABY RH POS H Med Orders - Current: Current Medications Acetaminophen (Acetaminophen 500 Mg Tab) 500 mg PO Q4H PRN PRN Reason: Pain Acetaminophen (Acetaminophen 500 Mg Tab) 1,000 mg PO Q4H PRN PRN Reason: Pain Last Admin: 02/04/21 04:35 Dose: 1,000 mg Documented by: Benzocaine/Menthol (Benzocaine/Menthol 20%-0.5% [place] 78 Gm Cannister) 78 gm TOP ASDIRECTED PRN PRN Reason: Perineal Comfort Measure Last Admin: 02/03/21 04:38 Dose: 1 canister Documented by: Bisacodyl (Bisacodyl 10 Mg Supp) 10 mg RECTAL ONETIME PRN PRN Reason: Constipation Butorphanol Tartrate (Butorphanol 1 Mg/Ml Sdv) 1 mg IVPUSH Q1H PRN PRN Reason: Pain Carboprost Tromethamine (Carboprost Tromethamine 250 Mcg/1 Ml Amp) 250 mcg IM ASDIRECTED PRN PRN Reason: Post Hemorrhage Docusate Sodium (Docusate Sodium 100 Mg Cap) 100 mg PO BID PRN PRN Reason: Constipation Last Admin: 02/03/21 21:12 Dose: 100 mg Documented by: Emollient Ointment (Lanolin 100% Cream 7 Gm Tube) 0 gm TOP ASDIRECTED PRN PRN Reason: Sore Nipples Last Admin: 02/03/21 04:37 Dose: 7 gm Documented by: Lactated Ringer's (Ringers, Lactated) 1,000 mls @ 150 mls/hr IV ASDIRECTED [facility] Last Infusion: 02/03/21 02:39 Dose: Infused Documented by: Oxytocin/Sodium Chloride (Oxytocin 30 Unit/500 Ml-Ns) 30 unit in 500 mls @ 999 mls/hr IV TITRATE [facility] Last Admin: 02/03/21 02:39 Dose: 999 mls/hr Documented by: Tranexamic Acid 1,000 mg/ (Sodium Chloride) 110 mls @ 660 mls/hr IV ONETIME PRN PRN Reason: Bleeding Ibuprofen (Ibuprofen 400 Mg Tab) 400 mg PO Q4H PRN PRN Reason: Pain Ibuprofen (Ibuprofen 800 Mg Tab) 800 mg PO Q6H PRN PRN Reason: Pain Last Admin: 02/04/21 09:46 Dose: 800 mg Documented by: Lidocaine HCl (Lidocaine 1% 50 Ml Mdv) 50 ml INJECT ONETIME PRN PRN Reason: Laceration repair Methylergonovine Maleate (Methylergonovine 0.2 Mg/1 Ml Amp) 0.2 mg IM ASDIRECTED PRN PRN Reason: Post Hemorrhage Misoprostol (Misoprostol 200 Mcg Tab) 200 mcg PO ONETIME PRN PRN Reason: Post Hemorrhage Nalbuphine HCl (Nalbuphine 10 Mg/1 Ml Vial) 10 mg IVPUSH Q1H PRN PRN Reason: Pain (severe 7-10) Last Admin: 02/02/21 22:33 Dose: 10 mg Documented by: Oxycodone HCl (Oxycodone 5 Mg Tab) 5 mg PO Q2H PRN PRN Reason: Pain Sodium Chloride (Sodium Chloride 0.9% 10 Ml Syringe) 10 ml FLUSH ASDIRECTED PRN PRN Reason: Keep Vein Open Sodium Chloride (Sodium Chloride 0.9% 2.5 Ml Syringe) 2.5 ml FLUSH ASDIRECTED PRN PRN Reason: Keep Vein Open Sodium Chloride (Sodium Chloride 0.9% 10 Ml Sdv) 10 ml IV ASDIRECTED PRN PRN Reason: IV Use Sterile Water (Water For Irrigation,Sterile 1,000 Ml Container) 1,000 ml IRR ASDIRECTED PRN PRN Reason: delivery Witch Florecita (Witch Florecita Medicated Pads 40/Jar) 1 pad TOP ASDIRECTED PRN PRN Reason: comfort care Last Admin: 02/03/21 04:38 Dose: 1 tub Documented by: Discontinued Medications Diphtheria/Tetanus/Acell Pertussis (Diphtheria,Pertussis(Acell),Tetanus Vaccine 0.5 Ml Syringe) 0.5 ml IM .ONCE ONE Stop: 02/03/21 15:00 Fentanyl (Fentanyl 100 Mcg/2 Ml Sdv) Confirm Administered Dose 100 mcg .ROUTE .[employer]-[facility] ONE Stop: 02/02/21 23:26 Last Admin: 02/03/21 11:34 Dose: Not Given Documented by: Ropivacaine (Naropin 0.2%) Confirm Administered Dose 100 mls @ as directed .ROUTE .[employer] ONE Stop: 02/02/21 23:26 Last Admin: 02/03/21 11:34 Dose: Not Given Documented by: Nalbuphine HCl (Nalbuphine 10 Mg/1 Ml Vial) Confirm Administered Dose 10 mg .ROUTE .[employer] ONE Stop: 02/02/21 22:32 Last Admin: 02/03/21 11:34 Dose: Not Given Documented by: Ropivacaine (Ropivacaine 0.2% Pf 2 Mg/Ml 20 Ml Sdv) Confirm Administered Dose 20 ml .ROUTE .[employer] ONE Stop: 02/02/21 23:26 Last Admin: 02/03/21 11:34 Dose: Not Given Documented by: - Exam General: Reports: Alert, Oriented HEENT: Reports: Pupils Equal Lungs: Reports: Normal Respiratory Effort Cardiovascular: Reports: Regular Rate GI/Abdominal Exam: Soft, Non-Tender Extremities: Normal Inspection Psy/Mental Status: Reports: Alert, Normal Affect, Normal Mood
== END 2021-02-04 16:20 | disposition home or self-care (01) | DRG 807 ==
LOC: MW.OBCHECK 20:21 → MW.OB 20:24 → MW.OBCHECK 22:10 → OBSVTOIN 02-03 02:39 → MW.OB 02-03 05:30
PROVIDERS: ADMIT Obstetrics & Gynecology Obstetrics; ATTEND Obstetrics & Gynecology Obstetrics
PROC: 10E0XZZ Delivery of Products of Conception, External Approach (ICD-10-PCS; principal; 2021-02-03)
PROC: 10907ZC Drainage of Amniotic Fluid, Therapeutic from Products of Conception, Via Natural or Artificial Opening (ICD-10-PCS; 2021-02-03)
PROC: 3E0R3BZ Introduction of Anesthetic Agent into Spinal Canal, Percutaneous Approach (ICD-10-PCS; 2021-02-03)
DX: O26.893 Other specified pregnancy related conditions, third trimester (principal); Z37.0 Single live birth; Z67.31 Type AB blood, Rh negative; Z3A.38 38 weeks gestation of pregnancy; Z20.822 Contact with and (suspected) exposure to COVID-19
CPT/HCPCS: 36415; 51702; 59025; 59409; 81001; 85014; 85018; 85027; 85460; 86592; 86850; 86900; 86901; 90471; 90715; A9270-GY; J2300; J2590; J2792; J2795; J3010; J7120; U0002

== ENCOUNTER 2023-02-22 13:55 | Emergency (ER) | payer MEDICAID | END 2023-02-22 15:17 | disposition left against medical advice (07) | LOC: MW.ED 13:55 | DX: Z53.21 Procedure and treatment not carried out due to patient leaving prior to being seen by health care provider (principal) ==

== ENCOUNTER 2023-02-23 13:46 | Emergency (ER) | payer MEDICAID ==
[2023-02-23] MEDS ORDERED: Sodium Chloride 0.9% 10 ML Syringe FLUSH PRN (14:25)
[2023-02-23] MEDS ORDERED: Sodium Chloride 0.9% 2.5 ML Syringe FLUSH PRN (14:25)
[2023-02-23 15:17] LABS: BASOPHILS PERCENT AUTO 0.3 % (0.0-1.5); EOSINOPHILS PERCENT AUTO 0.1 % (0.0-7.0); HEMATOCRIT 40.3 % (36.0-46.0); HEMOGLOBIN 13.7 g/dL (12.0-16.0); LYMPHOCYTES ABSOLUTE AUTO 1.2 K/uL (0.6-2.4); LYMPHOCYTES PERCENT AUTO 16.3 % (16.0-40.0); MEAN CORPUSCULAR HEMOGLOBIN 29.7 pg (27.0-32.0); MEAN CORPUSCULAR VOLUME 87.2 fL (80.0-98.0); MONOCYTES ABSOLUTE AUTO 0.6 K/uL (0.0-0.8); MONOCYTES PERCENT AUTO 8.2 % (0.0-15.0); NEUTROPHILS ABSOLUTE AUTO 5.5 K/uL (1.4-5.7); NEUTROPHILS PERCENT AUTO 75.1 % (48.0-80.0); NRBC ABSOLUTE 0 K/uL; PLATELET COUNT,PLT 225 K/uL (150-400); RED BLOOD CELL COUNT 4.62 M/uL (4.30-5.90); WHITE BLOOD CELL COUNT,WBC 7.36 K/uL (4.0-11.0)
[2023-02-23 16:06] LABS: A/G RATIO 1.2 (0.9-1.6); ALBUMIN 3.8 g/dL (3.4-5.0); BILIRUBIN TOTAL 0.3 mg/dL (0.2-1.0); CALCIUM 9.5 mg/dL (8.5-10.1); CREATININE 0.6 mg/dL (0.6-1.0); EST CRCL DRUG DOSING (CG) 104.79 mL/min; POTASSIUM,K 4.1 mmol/L (3.5-5.1)
== END 2023-02-23 17:00 | disposition home or self-care (01) ==
LOC: MW.ED 13:46
DX: O20.0 Threatened abortion (principal); Z3A.01 Less than 8 weeks gestation of pregnancy
CPT/HCPCS: 36415; 36430; 76817; 76817-26; 80053; 84702; 85025; 86850; 86900; 86901; 99283; 99284; J2790

== ENCOUNTER 2023-05-03 18:11 | Emergency (ER) | payer MEDICAID ==
[2023-05-03 18:47] LABS: BASOPHILS PERCENT AUTO 0.2 % (0.0-1.5); EOSINOPHILS PERCENT AUTO 0.4 % (0.0-7.0); HEMATOCRIT 39.6 % (36.0-46.0); HEMOGLOBIN 13.9 g/dL (12.0-16.0); LYMPHOCYTES ABSOLUTE AUTO 1.6 K/uL (0.6-2.4); LYMPHOCYTES PERCENT AUTO 17.7 % (16.0-40.0); MEAN CORPUSCULAR HEMOGLOBIN 30.3 pg (27.0-32.0); MEAN CORPUSCULAR HGB CONC 35.1 g/dL (31.0-37.0); MEAN CORPUSCULAR VOLUME 86.3 fL (80.0-98.0); MONOCYTES ABSOLUTE AUTO 0.6 K/uL (0.0-0.8); MONOCYTES PERCENT AUTO 6.2 % (0.0-15.0); NEUTROPHILS ABSOLUTE AUTO 6.7 K/uL (1.4-5.7); NEUTROPHILS PERCENT AUTO 75.5 % (48.0-80.0); NRBC ABSOLUTE 0 K/uL; PLATELET COUNT,PLT 235 K/uL (150-400); RED BLOOD CELL COUNT 4.59 M/uL (4.30-5.90); WHITE BLOOD CELL COUNT,WBC 8.92 K/uL (4.0-11.0)
[2023-05-03 19:05] LABS: A/G RATIO 0.9 (0.9-1.6); ALBUMIN 3.4 g/dL (3.4-5.0); BILIRUBIN TOTAL 0.2 mg/dL (0.2-1.0); CALCIUM 8.9 mg/dL (8.5-10.1); CARBON DIOXIDE,CO2 24.3 mmol/L (21.0-32.0); CREATININE 0.5 mg/dL (0.6-1.0); EST CRCL DRUG DOSING (CG) 134.3 mL/min; MAGNESIUM 1.8 mg/dL (1.8-2.4); POTASSIUM,K 3.8 mmol/L (3.5-5.1); PROTEIN TOTAL,TP 7.3 g/dL (6.4-8.2); TSH ULTRASENSITIVE 0.77 uIU/mL (0.36-3.74)
[2023-05-03] MEDS ORDERED: Iopamidol 755 MG/ML 500 ML Multipack Bottle IVPUSH ONE (19:38)
== END 2023-05-03 22:20 | disposition home or self-care (01) ==
LOC: MW.ED 18:11
DX: O99.342 Other mental disorders complicating pregnancy, second trimester (principal); F41.9 Anxiety disorder, unspecified; O99.891 Other specified diseases and conditions complicating pregnancy; R79.89 Other specified abnormal findings of blood chemistry; R07.9 Chest pain, unspecified; Z3A.16 16 weeks gestation of pregnancy
CPT/HCPCS: 36415; 71275; 80053; 83735; 83880; 84443; 84484; 85025; 85379; 93005; 99285; Q9967; 93010; 99284

== ENCOUNTER 2023-09-13 18:43 | Observation (INO) | payer SELFPAY ==
[2023-09-13 21:21] LABS: ALBUMIN 2.2 g/dL (3.4-5.0); BILIRUBIN DIRECT 0.3 mg/dL (0.0-0.5); BILIRUBIN INDIRECT 0.1; BILIRUBIN TOTAL 0.4 mg/dL (0.2-1.0); PROTEIN TOTAL,TP 7.1 g/dL (6.4-8.2)
[2023-09-13 21:22] LABS: A/G RATIO 0.5 (0.9-1.6)
== END 2023-09-13 21:35 | disposition home or self-care (01) ==
LOC: MW.OBCHECK 18:43 → MW.OB 18:43 → MW.OBCHECK 18:53 → MW.OB 18:54
PROVIDERS: ADMIT Obstetrics & Gynecology; ATTEND Obstetrics & Gynecology Obstetrics
DX: O26.613 Liver and biliary tract disorders in pregnancy, third trimester (principal); Z3A.34 34 weeks gestation of pregnancy
CPT/HCPCS: 36415; 59025; 80076; G0378

== ENCOUNTER 2023-09-18 12:50 | Observation (INO) | payer SELFPAY ==
[2023-09-18] MEDS ORDERED: Methylergonovine 0.2 MG/1 ML Amp IM PRN (13:43)
[2023-09-18] MEDS ORDERED: Sodium Chloride 0.9% 20 ML SDV IV PRN (13:43)
[2023-09-18] MEDS ORDERED: Carboprost Tromethamine 250 MCG/1 mL Vial IM PRN (13:43)
[2023-09-18] MEDS ORDERED: Sodium Chloride 0.9% 10 ML Syringe FLUSH PRN (13:43)
[2023-09-18] MEDS ORDERED: Water For Irrigation,Sterile 1,000 ML Container IRR PRN (13:43)
[2023-09-18] MEDS ORDERED: Lidocaine 1% 50 ML MDV INJECT PRN (13:43)
[2023-09-18] MEDS ORDERED: Misoprostol 200 MCG Tab PO PRN (13:43)
[2023-09-18] MEDS ORDERED: Tranexamic Acid IN NACL,ISO-OS 1,000 MG in Premix Bag 1 BAG IV PRN ×2 (13:43)
[2023-09-18] MEDS ORDERED: Sodium Chloride 0.9% 2.5 ML Syringe FLUSH PRN (13:43)
[2023-09-18] MEDS ORDERED: Oxytocin/0.9 % Sodium Chloride 30 UNIT/500 ML BAG IV SCH (13:45)
[2023-09-18] MEDS: Lactated Ringers 1,000 ML IV SCH ×2 (14:00→15:10)
[2023-09-18 14:21] LABS: HEMATOCRIT 32.3 % (37.0-47.0); HEMOGLOBIN 11.1 g/dL (12.0-16.0); MEAN CORPUSCULAR HEMOGLOBIN 28.2 pg (28.0-32.0); MEAN CORPUSCULAR HGB CONC 34.4 g/dL (32.0-36.0); PLATELET COUNT,PLT 219 K/uL (150-400); RED BLOOD CELL COUNT 3.94 M/uL (4.10-5.30); WHITE BLOOD CELL COUNT,WBC 9.02 K/uL (3.9-11.3)
[2023-09-18] MEDS ORDERED: Betamethasone Acetate/Betamethasone Sod Phosphate 6 MG/1 ML MDV IM ONE (16:02)
[2023-09-18] MEDS ORDERED: Ampicillin 2 GM in Sodium Chloride 0.9% 100 ML IV ONE (16:15)
== END 2023-09-18 17:35 ==
LOC: MW.OBCHECK 12:50 → MW.OB 12:52 → MW.OBCHECK 13:43 → MW.OB 13:43
PROVIDERS: ADMIT Obstetrics & Gynecology; ATTEND Obstetrics & Gynecology Obstetrics
DX: O26.613 Liver and biliary tract disorders in pregnancy, third trimester (principal); K83.1 Obstruction of bile duct; Z3A.35 35 weeks gestation of pregnancy; Z79.899 Other long term (current) drug therapy
CPT/HCPCS: 36415; 59025; 84112; 85027; 86592; 86850; 86900; 86901; 96372; G0378; J0290; J0702; J3490; J7120

== ENCOUNTER 2024-07-27 10:29 | Emergency (ER) | payer SELFPAY ==
[2024-07-27 11:19] LABS: BASOPHILS ABSOLUTE AUTO 0.02 K/uL (0.00-0.20); BASOPHILS PERCENT AUTO 0.3 % (0.0-1.0); EOSINOPHILS ABSOLUTE AUTO 0.01 K/uL (0.00-0.45); EOSINOPHILS PERCENT AUTO 0.2 % (0.0-6.0); HEMATOCRIT 37.2 % (37.0-47.0); HEMOGLOBIN 12.8 g/dL (12.0-16.0); IMMATURE GRAN ABSOLUTE AUTO 0.01 K/uL (0.00-0.05); IMMATURE GRAN PERCENT AUTO 0.2 % (0.0-0.4); LYMPHOCYTES ABSOLUTE AUTO 1.32 K/uL (1.00-4.80); LYMPHOCYTES PERCENT AUTO 21.4 % (24.0-44.0); MEAN CORPUSCULAR HEMOGLOBIN 29.7 pg (28.0-32.0); MEAN CORPUSCULAR HGB CONC 34.4 g/dL (32.0-36.0); MEAN CORPUSCULAR VOLUME 86.3 fL (83.0-99.0); MEAN PLATELET VOLUME 9.2 fL (9.4-12.3); MONOCYTES ABSOLUTE AUTO 0.54 K/uL (0.00-0.80); MONOCYTES PERCENT AUTO 8.8 % (0.0-8.0); NEUTROPHILS ABSOLUTE AUTO 4.26 K/uL (1.80-7.70); NEUTROPHILS PERCENT AUTO 69.1 % (41.0-71.0); PLATELET COUNT,PLT 229 K/uL (150-400); RED BLOOD CELL COUNT 4.31 M/uL (4.10-5.30); WHITE BLOOD CELL COUNT,WBC 6.16 K/uL (3.9-11.3)
[2024-07-27] MEDS: Ampicillin/Sulbactam Na 3 GM in Sodium Chloride 0.9% 100 ML IV STA (11:35)
[2024-07-27 11:50] LABS: A/G RATIO 1.1 (0.9-1.6); ALBUMIN 4.1 g/dL (3.4-5.0); BILIRUBIN TOTAL 0.6 mg/dL (0.2-1.0); CALCIUM 9.9 mg/dL (8.5-10.1); CARBON DIOXIDE,CO2 29.2 mmol/L (21.0-32.0); CREATININE 0.6 mg/dL (0.6-1.0); EST CRCL DRUG DOSING (CG) 93.96 mL/min; POTASSIUM,K 4.2 mmol/L (3.5-5.1); PROTEIN TOTAL,TP 7.8 g/dL (6.4-8.2)
[2024-07-27] MEDS: Iopamidol 755 MG/ML 500 ML Multipack Bottle IVPUSH STA (15:35)
== END 2024-07-27 13:20 | disposition home or self-care (01) ==
LOC: MW.ED 10:29
DX: K03.81 Cracked tooth (principal); K04.7 Periapical abscess without sinus; K02.9 Dental caries, unspecified; Z79.899 Other long term (current) drug therapy; Z75.8 Other problems related to medical facilities and other health care
CPT/HCPCS: 36415; 70491; 80053; 84703; 85025; 96365; 96375; 99284; J0295; J1100; J3490; Q9967